=== PATIENT | male | born 1970 | race Caucasian/White ===

== ENCOUNTER → 2024-08-04 | Day surgery (SDC) | payer OTHER ==
[~2024-08-04] MED LIST: ACETAMINOPHEN 1000 MG/100 ML IV ONE; BUPIVACAINE 0.5%/EPI 30 ML SDV INJ ONE; ESMOLOL HCL 100MG/10ML 10 MG/ML VIAL IV ONE; FAMOTIDINE 20 MG/2 ML VIAL IV ONE; FENTANYL CITRATE/PF 100MCG/2 ML INJ ONE; KETAMINE HCL INJ 50 MG/ML 10 ML VIAL ONE; LEVOCETIRIZINE D5 MG PO; LIDOCAINE HCL 2% LOCAL INJ 5 ML SDV VIAL INJ ONE; METHOCARBAMOL750 MG PO; METOCLOPRAMIDE HCL 10 MG/2ML VIAL IV ONE; MIDAZOLAM HCL 2 MG/2 ML VIAL ONE; MONTELUKAST SOD10 MG PO; ONDANSETRON HCL INJ 2MG/ML 2ML 2 MG/ML VIAL IV ONE; PROPOFOL IV EMULSION 10 MG/ML 20 ML VIAL IV ONE; ROCURONIUM BROMIDE 10 MG/ML 5ML VIAL IV ONE; SEVOFLURANE INHAL SOLN 250 ML PEN BTL INH ONE; SUCCINYLCHOLINE CHLORIDE 20 MG/ML 10ML VIAL IV ONE; SUGAMMADEX SODIUM 200 MG/2 ML VIAL IV ONE; ZESTRIL10 MG PO
[2024-08-04] MEDS: CEFAZOLIN SODIUM 2 GM ONE (11:45)
[2024-08-04] MEDS: LACTATED RINGER'S 1,000 ML ONE (11:45)
[2024-08-04 14:30] VITALS: TEMP 97.2
[2024-08-04] MEDS: FENTANYL CITRATE/PF 100MCG/2 ML INJ ONE (14:45)
[2024-08-04] MEDS: HYDROCODONE/APAP 7.5MG-325MG 1 EA TAB ONE (15:20)
[2024-08-04 15:33] VITALS: BP 130/84; PULSE 74; RESP 18; O2SAT 97
== END | disposition home or self-care (01) ==
LOC: OR 10:13
PROVIDERS: ATTEND Podiatrist Foot & Ankle Surgery
DX: M72.2 Plantar fascial fibromatosis (principal); G58.8 Other specified mononeuropathies; M25.871 Other specified joint disorders, right ankle and foot; E66.01 Morbid (severe) obesity due to excess calories; Z01.810 Encounter for preprocedural cardiovascular examination
CPT/HCPCS: 28062; 29897; 64704; 93005; C1762; J0131; J0330; J0690; J2001; J2250; J2405; J2704; J2765; J3010; J7121